=== PATIENT | female | born 1990 | race Caucasian/White ===

== ENCOUNTER 2020-04-07 16:58 | Inpatient (IN) | payer BC ==
[2020-04-10] MEDS ORDERED: DINOPROSTONE 10 MG INSERT.ER VAGINAL ONE (19:14)
[2020-04-10 20:25] LABS: ALT 10 U/L (4-34); AST 24 U/L (14-36); African American GFR (CKD) >90 (>60 ml/min/1.73 sqM); Blood Urea Nitrogen 9 mg/dL (7-17); LDH 483 U/L (313-618); Non-African American GFR(CKD) >90 (>60 ml/min/1.73 sqM); Uric Acid 5.3 mg/dL (3.7-7.4)
[2020-04-10 20:27] LABS: Protein/Creatinine Ratio,Urine 0.326
[2020-04-10 20:31] LABS: Anisocytosis Slight; Basophils # (A) 0.1 k/uL (0-0.2); Basophils % (A) 1 %; Eosinophils # (A) 0.1 k/uL (0-0.7); Eosinophils % (A) 1 %; HCT 33.4 % (34.0-46.0); HGB 10.5 gm/dL (11.4-16.0); Hypochromasia Slight; Lymphocytes # (A) 1.5 k/uL (1.0-4.8); Lymphocytes % (A) 16 %; MCH 23.2 pg (25.0-35.0); MCHC 31.3 g/dL (31.0-37.0); MCV 74.1 fL (80.0-100.0); Mean Platelet Volume 8.1; Microcytosis Slight; Monocytes # (A) 0.4 k/uL (0-1.0); Monocytes % (A) 4 %; Neutrophils % (A) 76 %; Platelet Count 374 k/uL (150-450); RBC 4.51 m/uL (3.80-5.40); RDW 16.4 % (11.5-15.5); WBC 9.2 k/uL (3.8-10.6)
[2020-04-10] MEDS ORDERED: BUTORPHANOL 1 MG/ML 1 ML VIAL IV PRN (20:34)
--- NOTE | 2020-04-10 20:42 | P.HPOB ---
History of Present Illness H&P Date: 04/10/20 Chief Complaint: 40-3/7 weeks, induction of labor, -induced hyperte nsion The patient is a 29-year-old 1 para 0 admitted at 40-3/7 weeks as established by last menstrual period and confirmed by 19 week ultrasound. She is admitted with a diagnosis of -induced hypertension found first at approximately 35-36 weeks with no evidence of superimposed preeclampsia. The suspicion is for undiagnosed pre-gestational hypertension. She has had laboratories done on several occasions which have always been normal. Home blood pressures have remained in the stable range without antihypertensive medications. Her has otherwise been uncomplicated and group B strep status is negative. She is Rh- and received RhoGAM at approximately 28 weeks. She additionally was found at second trimester ultrasound with a possible ventricular septal defect which was not noted on further examination with maternal- medicine. On admission, all signs reassuring. She did have some elevated initial blood pressures which have normalized since admission. Obstetrical history: 1 para 0 with current statistics listed in history of present illness. EDC of 04/07/2020 was established by last menstrual period and confirmed by 19 week ultrasound. Laboratory workup demonstrates a blood type of AB- with a negative antibody screen. Rubella status is immune. The remainder of the laboratory workup was within normal limits. Early Glucola and second trimester Glucola were both within normal limits. Group B strep status is negative. Gynecologic history: Unremarkable with no history of any infections to include STDs. Review of Systems Review of systems is confined to history of present illness. Past Medical History Past Medical History: No Reported History History of Any Multi-Drug Resistant Organisms: None Reported Past Surgical History: No Surgical Hx Reported Past Anesthesia/Blood Transfusion Reactions: No Reported Reaction Past Psychological History: No Psychological Hx Reported Smoking Status: Never smoker - Past Family History Father Family Medical History: Hypertension Medications and Allergies Home Medications Medication Instructions Recorded Confirmed Type Pnv No.95/Ferrous Fum/Folic AC 1 tab PO DAILY 04/10/20 04/10/20 History [ Multivitamin Tablet] Allergies Allergy/AdvReac Type Severity Reaction Status Date / Time No Known Allergies Allergy Verified 04/10/20 19:14 Exam Vital Signs Temp Pulse Resp BP Pulse Ox 04/10/20 19:16 98.2 F 94 16 167/93 100 Intake and Output 04/10/20 04/10/20 04/10/20 06:59 14:59 22:59 Other: Weight 126.552 kg In general, this is a well-developed, moderately obese white female in no acute distress. Her heart has a regular rhythm and rate without murmur. Her lungs are clear to auscultation bilaterally in all mag[place]on. Her abdomen is gravid, nondistended, has normal active bowel sounds, is soft, nontender, and without any palpable masses aside from uterine fundus. Her extremities are without any cyanosis, clubbing, or significant edema and are nontender to palpation bilaterally. Digital cervical examination demonstrates her cervix to be 1 cm dilated, approximately 50% effaced, the vertex in presentation at -2 station. Cervidil is placed in the posterior fornix per protocol. Results Result Diagrams: 04/10/20 19:28 04/10/20 19:27 Abnormal Lab Results - Last 24 Hours (Table) 04/10/20 04/10/20 04/10/20 Range/Units 19:27 19:28 19:28 Hgb 10.5 L (11.4-16.0) gm/dL Hct 33.4 L (34.0-46.0) % MCV 74.1 L (80.0-100.0) fL MCH 23.2 L (25.0-35.0) pg RDW 16.4 H (11.5-15.5) % Creatinine 0.51 L (0.52-1.04) mg/dL U Random Total Protein 74 H (<12) mg/dL Assessment and Plan (1) Post-dates Current Visit: Yes Status: Acute Code(s): O48.0 - POST-TERM SNOMED Code(s): 96429770 (2) induced hypertension Current Visit: Yes Status: Acute Code(s): O13.9 - GESTATIONAL HTN W/O SIGNIFICANT PROTEINURIA, UNSP TRIMESTER SNOMED Code(s): 12453073 Plan: The patient is admitted for Cervidil cervical ripening with subsequent induction if necessary. Risks and complications of the procedures have been thoroughly discussed including the risk for uterine hyperstimulation and subsequent cesarea n section. She will have close maternal and surveillance and expectant management will be practice. She is an excellent candidate for either IV or epidural analgesia, whichever she may choose. Laboratory workup drawn on admission is essentially within normal limits.
[2020-04-11] MEDS: LACTATED RINGERS 1,000 ML IV SCH ×4 (07:05→19:14)
[2020-04-11] MEDS ORDERED: LIDOCAINE 0.5% (PF) 5 MG/ML (50 ML SDV) SQ PRN (07:14)
[2020-04-11] MEDS ORDERED: METHYLERGONOVINE 0.2 MG/ML 1 ML AMP IM PRN (07:14)
[2020-04-11] MEDS ORDERED: OXYTOCIN 10 UNIT/ML 1 ML VIAL IM PRN (07:14)
[2020-04-11] MEDS ORDERED: CARBOPROST TROMETHAMINE 250 MCG/ML 1 ML AMP IM PRN (07:14)
[2020-04-11] MEDS ORDERED: TERBUTALINE 1 MG/ML VIAL SQ PRN (07:14)
[2020-04-11] MEDS: OXYTOCIN 30 UNITS/500 ML NS 30 UNIT in SALINE 1 500ML.BAG IV SCH (07:15)
--- NOTE | 2020-04-11 08:43 | P.PN ---
Subjective Progress Note Date: 04/11/20 Principal diagnosis: 40+ weeks, induction Since placement of the Cervidil, the patient remains relatively comfortable. She does feel contractions beginning this morning at approximately 6:00 but otherwise has no complaints. Objective - Vital Signs Vital signs: Vital Signs Temp 98.2 F 04/10/20 19:16 Pulse 94 04/10/20 19:16 Resp 16 04/10/20 19:16 BP 167/93 04/10/20 19:16 Pulse Ox 100 04/10/20 19:16 Intake & Output 04/10/20 04/11/20 04/11/20 18:59 06:59 18:59 Weight 126.552 kg Other: # Voids 1 - Exam In general, this is a well-developed, moderately obese white female in no acute distress. Her abdomen is gravid, nondistended, soft, nontender, and without any palpable masses, her extremities are without any cyanosis, clubbing, or significant edema and are nontender to palpation bilaterally. Digital cervical examination demonstrates cervix to be 2 cm dilated, 70% effaced, the vertex in presentation at -2 station and the head firmly applied to the cervix with pressure against it. Artificial rupture of membranes is carried out demonstrating moderate to relatively thick meconium-stained fluid. A scalp electrode was applied without difficulty. - Labs CBC & Chem 7: 04/10/20 19:28 04/10/20 19:27 Labs: Abnormal Lab Results - Last 24 Hours (Table) 04/10/20 04/10/20 04/10/20 Range/Units 19:27 19:28 19:28 Hgb 10.5 L (11.4-16.0) gm/dL Hct 33.4 L (34.0-46.0) % MCV 74.1 L (80.0-100.0) fL MCH 23.2 L (25.0-35.0) pg RDW 16.4 H (11.5-15.5) % Creatinine 0.51 L (0.52-1.04) mg/dL U Random Total Protein 74 H (<12) mg/dL Assessment and Plan (1) Post-dates Current Visit: Yes Status: Acute Code(s): O48.0 - POST-TERM SNOMED Code(s): 34252079 (2) induced hypertension Current Visit: Yes Status: Acute Code(s): O13.9 - GESTATIONAL HTN W/O SIGNIFICANT PROTEINURIA, UNSP TRIMESTER SNOMED Code(s): 49067347 Plan: Pitocin augmentation has been started. She will continue to have close maternal and surveillance and expectant management will be practiced. At this time, heart tones are category 1. As noted previously, the patient is a good candidate for either IV or epidural analgesia, whichever she may choose.
[2020-04-11] MEDS ORDERED: LABETALOL 100 MG TAB PO ONE (09:42)
[2020-04-11] MEDS ORDERED: CITRIC ACID-SODIUM CITRATE 15 ML CUP PO ONE (16:21)
[2020-04-11] MEDS ORDERED: ceFAZolin 3 GM in SODIUM CHLORIDE 0.9% 100 ML IVPB ONE (16:21)
[2020-04-11] MEDS ORDERED: LANOLIN CREAM 5 GM TUBE TOPICAL PRN (17:58)
[2020-04-11] MEDS ORDERED: METOCLOPRAMIDE 5 MG/ML 2 ML VIAL IVP PRN (17:58)
[2020-04-11] MEDS ORDERED: NALOXONE 0.4 MG/ML 1 ML VIAL IV PRN (17:58)
[2020-04-11] MEDS ORDERED: ZOLPIDEM 5 MG TAB PO PRN (17:58)
[2020-04-11] MEDS ORDERED: SIMETHICONE 80 MG CHEWABLE PO PRN (17:58)
[2020-04-11] MEDS ORDERED: diphenhydrAMINE 50 MG/ML 1 ML VIAL IVP PRN ×2 (17:58)
[2020-04-11] MEDS ORDERED: ACETAMINOPHEN TAB 325 MG TAB PO PRN (17:58)
[2020-04-11] MEDS ORDERED: diphenhydrAMINE 25 MG CAP PO PRN (17:58)
[2020-04-11] MEDS ORDERED: ONDANSETRON 4 MG/2 ML VIAL IVP PRN (17:58)
[2020-04-11] MEDS ORDERED: diphenhydrAMINE 50 MG CAP PO PRN (17:58)
[2020-04-11] MEDS ORDERED: HYDROcodone/APAP 7.5-325MG 1 EACH TAB PO PRN (17:58)
[2020-04-11] MEDS ORDERED: OXYTOCIN 20 UNITS/1000 ML NS 1,000 ML IV SCH (18:00)
--- NOTE | 2020-04-11 18:10 | P.OP ---
Date of Procedure: 04/11/20 Preoperative Diagnosis: 1. 40-3/7 weeks, induction of labor #2. intolerance of labor #3. Arrest of dilation and descent Postoperative Diagnosis: Same plus #4. Uterine fibroids obstructing labor Procedure(s) Performed: 1. Primary low transverse section Anesthesia: epidural Surgeon: Estiven Mcgrath Relations Mgr #1: Linette Almonte Estimated Blood Loss (ml): 450 IV fluids (ml): 1,000 Urine output (ml): 200 Pathology: none sent Condition: stable Disposition: floor Operative Findings: Preoperative, the patient had had multiple episodes of deep variable decelerations and had made no significant cervical progress for more than 4 hours. The decision was made to proceed to the operating room for the diagnosis as outlined above. She was taken the operating room where she was delivered of a viable 5 lbs. 12 oz. baby girl with Apgars of 8 at 1 minute and 9 at 5 minutes delivered in the left occiput transverse position. The placenta was delivered manually and intact and was otherwise grossly normal with a grossly normal three-vessel cord. The uterus was noted to have multiple fibroids, mostly subserosal, but the largest fibroid was intramural and at the level of the right angle of the uterine incision making delivery somewhat more arduous. Otherwise the uterus, tubes, and ovaries were normal to inspection. Remainder of the fibroids were noted primarily on the anterior midportion of the fundus. All the fibroids ranged from at least 3 cm to perhaps 5-6 cm in size. Description of Procedure: The patient was prepped and draped in usual fashion after epidural anesthesia was bolused by the anesthesiologist. A Pfannenstiel incision was made and extended to the abdominal cavity without difficulty. The findings on the lower uterine segment were as noted above. The bladder peritoneum was elevated, incised, and reflected distally. A 2 cm incision was made in the transverse plane of the lower uterine segment to enter the uterus at which time no further fluid was noted though it had been earlier noted to be meconium-stained. The incision was extended in both directions using the bandage scissors with attention turned towards opening it more to the left side than the right as the fibroid was located on the right. The head was then delivered up and through the incision where the nose and mouth were thoroughly suctioned. The remainder of the infant was delivered onto the field where the cord was doubly clamped, cut, and the passed resuscitative measures with weight and Apgars as noted above. A segment of cord was doubly clamped, cut, and set aside after taking cord blood for evaluation for the necessity of RhoGAM. The placenta was delivered manually and intact as noted above. The uterus was exteriorized and the interior cavity of the uterus swept of any remaining placental or membranous fragments. The margins of the incision were grasped with Green clamps and the incision was closed in 2 layers. The first layer was a running locking stitch of 0 chromic catgut from margin to margin. The right aspect of the incision was immediately adjacent to the roughly 5 cm intramural fibroid. The second layer was a running locking stitch of 0 chromic catgut proceeding from margin to margin as well. Inspection of the incision demonstrated excellent hemostasis. Posterior cul-de-sac was suctioned with a g uard and dried with a laparotomy sponge. The uterus was replaced within the abdominal cavity and the gutters swept of any remaining blood, fluid, or clot. The incision was reexamined and found to be hemostatic. Urine was clear throughout the entire case. The Josafat self-retaining retractor was removed, the parietal peritoneum loosely reapproximated, and the layer of muscles examined and found to be hemostatic. The fascia was closed with 2 running stitches of 0 Vicryl proceeding from lateral margins to the midpoint. The subcutaneous tissues were irrigated, made hemostatic with the Bovie, and reapproximated with a running stitch of 30 plain catgut. The skin was reapproximated with a running subcuticular stitch of 4-0 Vicryl from margin to margin. This was followed by half-inch Steri-Strips placed with Mastisol. Estimated blood loss for the entire case was approximate 450 mL. There were no complications. All sponge, instrument, and needle counts were correct. The patient tolerated the procedure well and proceeded to the recovery room in stable condition. Both mother and are resting comfortably in recovery.
[2020-04-11] MEDS: KETOROLAC 15 MG/ML 1 ML VIAL IVP PRN (19:40)
[2020-04-11] MEDS: SENNOSIDES-DOCUSATE SODIUM 1 EACH TAB PO SCH (19:45)
--- NOTE | 2020-04-12 08:42 | P.PNOBGPC ---
Subjective - Subjective Patient reports: Reports appetite normal, Reports voiding normally, Reports pain well controlled, Reports ambulating normally : doing well, nursing well Objective - Vital Signs Latest vital signs: Vital Signs Temp Pulse Resp BP Pulse Ox 04/12/20 04:00 98.1 F 90 16 144/88 04/12/20 00:00 98.3 F 83 16 144/83 04/11/20 19:57 97.9 F 88 16 153/80 04/11/20 19:27 97.9 F 84 16 131/70 04/11/20 18:57 83 16 155/72 100 04/11/20 18:42 92 16 149/82 100 04/11/20 18:27 73 16 134/65 99 04/11/20 18:12 96.4 F L 87 16 142/73 98 04/11/20 17:57 97.0 F L 98 16 126/68 Intake and Output 04/11/20 04/12/20 04/12/20 22:59 06:59 14:59 Output Total 450 600 Balance -450 -600 Output: Urine 600 Estimated Blood Loss 450 Other: Voiding Method Indwelling Catheter - Exam Extremities: Present: normal Abdomen: Present: normal appearance, soft. Absent: distention, tenderness Incision: Present: normal, dry, intact Uterus: Present: normal, firm Assessment and Plan (1) Post-dates Current Visit: Yes Status: Acute Code(s): O48.0 - POST-TERM SNOMED Code(s): 30258117 (2) induced hypertension Current Visit: Yes Status: Acute Code(s): O13.9 - GESTATIONAL HTN W/O SIGNIFICANT PROTEINURIA, UNSP TRIMESTER SNOMED Code(s): 90801229 (3) Status post section Current Visit: Yes Status: Acute Code(s): Z98.891 - HISTORY OF UTERINE SCAR FROM PREVIOUS SURGERY SNOMED Code(s): 345293942 Plan: Continue routine care. We will continue to follow blood pressures closely. I have encouraged the patient ambulating hallways at least 4 times daily if not more. She is tolerating regular diet at this time. I would anticipate discharge home tomorrow pending no complications.
[2020-04-12] MEDS: SENNOSIDES-DOCUSATE SODIUM 1 EACH TAB PO SCH ×2 (09:07→20:16)
[2020-04-12] MEDS: KETOROLAC 15 MG/ML 1 ML VIAL IVP PRN ×2 (09:07→15:12)
[2020-04-12 09:25] LABS: Anisocytosis Slight; Basophils % (A) 0 %; Eosinophils # (A) 0.1 k/uL (0-0.7); Eosinophils % (A) 1 %; HCT 30.6 % (34.0-46.0); HGB 9.2 gm/dL (11.4-16.0); Hypochromasia Slight; Lymphocytes # (A) 0.8 k/uL (1.0-4.8); Lymphocytes % (A) 8 %; MCH 22.9 pg (25.0-35.0); MCHC 30.2 g/dL (31.0-37.0); MCV 75.8 fL (80.0-100.0); Mean Platelet Volume 7.8; Microcytosis Slight; Monocytes # (A) 0.4 k/uL (0-1.0); Monocytes % (A) 4 %; Neutrophils # (A) 8.4 k/uL (1.3-7.7); Neutrophils % (A) 86 %; Platelet Count 299 k/uL (150-450); RBC 4.03 m/uL (3.80-5.40); RDW 16.8 % (11.5-15.5); WBC 9.8 k/uL (3.8-10.6)
[2020-04-12] MEDS: IBUPROFEN 600 MG TAB PO PRN (20:16)
[2020-04-12] MEDS: LACTATED RINGERS 1,000 ML IV SCH ×3 (20:54→22:32)
[2020-04-12] MEDS: OXYTOCIN 30 UNITS/500 ML NS 30 UNIT in SALINE 1 500ML.BAG IV SCH (22:31)
[2020-04-13] MEDS: HYDROcodone/APAP 5-325MG 1 EACH TAB PO PRN ×2 (00:15→08:06)
[2020-04-13] MEDS ORDERED: diphenhydrAMINE 50 MG/ML 1 ML VIAL IVP PRN ×2 (01:36→01:37)
[2020-04-13] MEDS ORDERED: ONDANSETRON 4 MG/2 ML VIAL IVP PRN (01:37)
[2020-04-13] MEDS ORDERED: NALOXONE 0.4 MG/ML 1 ML VIAL IV PRN (01:37)
[2020-04-13] MEDS: IBUPROFEN 600 MG TAB PO PRN ×2 (02:24→14:24)
[2020-04-13 08:43] VITALS: BP 146/92; PULSE 103; RESP 15; TEMP 98
[2020-04-13] MEDS: SENNOSIDES-DOCUSATE SODIUM 1 EACH TAB PO SCH (08:43)
--- NOTE | 2020-04-13 08:45 | P.DS ---
Providers Date of admission: 04/10/20 19:00 Expected date of discharge: 04/13/20 Attending physician: Estiven Mcgrath Primary care physician: Dandre You - Discharge Diagnosis(es) (1) Post-dates Current Visit: Yes Status: Acute (2) induced hypertension Current Visit: Yes Status: Acute (3) Status post section Current Visit: Yes Status: Acute Hospital Course: The patient is a 29-year-old 1 para 0 admitted at 40-3/7 weeks by good dating parameters. She is admitted with a diagnosis of regnancy induced hypertension which initially presented around 35-36 weeks. There is been no evidence of superimposed preeclampsia. She is admitted with a relatively unfavorable cervix for Cervidil cervical ripening followed by induction of labor. On labor and delivery, all signs were reassuring. Blood pressures were randomly elevated and increased during the labor process until an epidural catheter was able to be placed. She initially had Cervidil placed and made minimal progress overnight after which time she underwent artificial rupture of membranes at the time of Pitocin augmentation and was noted to have relatively thick meconium-stained fluid. She progressed rather slowly through the latent phase of labor and began to have significant repetitive decelerations as well as 1 prolonged random deceleration which returned to baseline with good variability, category 1 heart rate tracing, with repositioning and the stopping Pitocin. She was able to have an epidural catheter placed for analgesia which then controlled her blood pressures thereafter. She did continue to have deep and repetitive variable decelerations with no significant further dilation after 5 cm nor any descent below -2 station. As result, decision was made to proceed to section. She was taken to section where she was delivered of a viable 5 lbs. 12 oz. baby girl with Apgars of 8 at 1 minute and 9 at 5 minutes. The patient was discovered to have fairly significant fibroids, one in particular near or in the lower uterine segment which perhaps obstructed labor but also made closure of the wound somewhat difficult. Nonetheless procedure was uncomplicated as was her course at which time her blood pressures remained within the range of not requiring treatment. She was deemed stable for discharge on postoperative day #2 was discharged home to follow-up in the office in 2 weeks for an incision check and 6 weeks routinely. Discharge instructions included calling for any significantly increased bleeding or foul-smelling lochia, significantly increased fever abdominal pain, perineal complaints, breast complaints, incisional complaints, or anything else that concerned her. She is additionally instructed to have nothing in the vagina for at least 6 weeks time to include intercourse. She was instructed to do no heavy lifting over the same period of time. She was last instructed to do no driving until off of all pain medications or 2 weeks' time, whichever came first. She understood her instructions and agrees to follow up as noted above. Discharge medications included a prescription for [place] 5/325 mg, 1-2 by mouth every 6 hours when necessary pain, #20 dispensed with no refills. She was otherwise to use [id number] analgesic pain medications as needed and to continue vitamins as she has opted to breast-feed. Maternal blood type is AB- and cord blood was sent for evaluation for the necessity of RhoGAM prior to discharge. Rubella status is immune. Discharge hemoglobin and hematocrit were 9.2 and 30.6 respectively. As result, she was instructed to take iron once daily for approximately 1 month. Procedures: #1. Cervidil cervical ripening #2. Pitocin augmentation #3. Artificial ruptur e of membranes #4. Epidural analgesia #5. Primary low-transverse section Patient Condition at Discharge: Stable Plan - Discharge Summary New Discharge Prescriptions: No Action Pnv No.95/Ferrous Fum/Folic AC [ Multivitamin Tablet] 1 tab PO DAILY Discharge Medication List Pnv No.95/Ferrous Fum/Folic AC [ Multivitamin Tablet] 1 tab PO DAILY 04/10/20 [History] Follow up Appointment(s)/Referral(s): Estiven Mcgrath MD [STAFF PHYSICIAN] - 2 Weeks Discharge Disposition: HOME SELF-CARE
== END 2020-04-13 16:15 | disposition home or self-care (01) | DRG 788 ==
LOC: 4FBP 04-10 19:00
PROVIDERS: ADMIT Obstetrics & Gynecology; ATTEND Obstetrics & Gynecology
PROC: 3E0P7VZ Introduction of Hormone into Female Reproductive, Via Natural or Artificial Opening (ICD-10-PCS; 2020-04-10)
PROC: 3E0R3BZ Introduction of Anesthetic Agent into Spinal Canal, Percutaneous Approach (ICD-10-PCS; 2020-04-11)
PROC: 3E033VJ Introduction of Other Hormone into Peripheral Vein, Percutaneous Approach (ICD-10-PCS; 2020-04-11)
PROC: 10907ZC Drainage of Amniotic Fluid, Therapeutic from Products of Conception, Via Natural or Artificial Opening (ICD-10-PCS; 2020-04-11)
PROC: 10D00Z1 Extraction of Products of Conception, Low, Open Approach (ICD-10-PCS; principal; 2020-04-11 17:04)
DX: O13.4 Gestational [pregnancy-induced] hypertension without significant proteinuria, complicating childbirth (principal); O99.214 Obesity complicating childbirth; Z3A.40 40 weeks gestation of pregnancy; Z37.0 Single live birth; O48.0 Post-term pregnancy; O62.1 Secondary uterine inertia; D25.9 Leiomyoma of uterus, unspecified; O34.13 Maternal care for benign tumor of corpus uteri, third trimester; O76 Abnormality in fetal heart rate and rhythm complicating labor and delivery; Z79.899 Other long term (current) drug therapy; Z82.49 Family history of ischemic heart disease and other diseases of the circulatory system
CPT/HCPCS: 82565; 82570; 83615; 84156; 84450; 84460; 84520; 84550; 85025; 86850; 86900; 86901

== ENCOUNTER 2021-09-25 11:53 | Outpatient (CLI) | payer BC, SELFPAY ==
[2021-09-25 13:01] LABS: Basophils % (A) 1 %; Eosinophils # (A) 0.1 k/uL (0-0.7); Eosinophils % (A) 1 %; HCT 33.2 % (34.0-46.0); HGB 10.8 gm/dL (11.4-16.0); Hypochromasia Slight; Lymphocytes # (A) 0.9 k/uL (1.0-4.8); Lymphocytes % (A) 16 %; MCH 25.4 pg (25.0-35.0); MCHC 32.4 g/dL (31.0-37.0); MCV 78.5 fL (80.0-100.0); Monocytes # (A) 0.3 k/uL (0-1.0); Monocytes % (A) 5 %; Neutrophils # (A) 4.3 k/uL (1.3-7.7); Neutrophils % (A) 77 %; Platelet Count 259 k/uL (150-450); RBC 4.23 m/uL (3.80-5.40); RDW 13.9 % (11.5-15.5); WBC 5.6 k/uL (3.8-10.6)
[2021-09-25 13:04] LABS: Appearance,Urine Clear (Clear); Bilirubin,Urine Negative (Negative); Blood,Urine Negative (Negative); Color,Urine Yellow; Glucose,Urine (UA) Negative (Negative); Ketones,Urine Trace (Negative); Leukocyte Esterase,Urine Negative (Negative); Nitrite,Urine Negative (Negative); PH, Urine 7.5 (5.0-8.0); Protein,Urine Negative (Negative); Specific Gravity,Urine 1.013 (1.001-1.035); Urobilinogen,Urine <2.0 mg/dL (<2.0)
[2021-09-25 13:12] LABS: Creatinine,Urine Random 105.2 mg/dL; Protein/Creatinine Ratio,Urine 0.095
[2021-09-25 13:13] LABS: ALT 11 U/L (4-34); AST 23 U/L (14-36); African American GFR (CKD) >90 (>60 ml/min/1.73 sqM); LDH 402 U/L (313-618); Non-African American GFR(CKD) >90 (>60 ml/min/1.73 sqM); Uric Acid 4.6 mg/dL (3.7-7.4)
[2021-09-25 13:44] VITALS: BP 142/85; PULSE 78; RESP 16; TEMP 97.5
== END 2021-09-25 13:35 | disposition home or self-care (01) ==
LOC: FBPOP 11:53
PROVIDERS: ATTEND Obstetrics & Gynecology
DX: O13.3 Gestational [pregnancy-induced] hypertension without significant proteinuria, third trimester (principal); Z3A.31 31 weeks gestation of pregnancy
CPT/HCPCS: 59025; 81003; 82565; 82570; 83615; 84156; 84450; 84460; 84550; 85025; 99215